=== PATIENT | male | born 1995 | race Caucasian/White ===

== ENCOUNTER 2018-03-02 02:27 | Emergency (ER) | payer BC, SELFPAY ==
[2018-03-02 02:27] VITALS: BP 139/86; PULSE 113; RESP 20; TEMP 39.3; O2SAT 93; BMI 24.4
[2018-03-02] MEDS: 0.9% Normal Saline 1,000 ML 1000 ML IV (04:01)
[2018-03-02] MEDS: Ketorolac 30 MG/ML Syringe IV (04:01)
[2018-03-02 04:04] LABS: Absolute Lymphocyte Count 1.06 X10^3/ul (0.83-4.51); Absolute Neutrophil Count 8.5 X10^3/uL (2.0-7.7); Basophil# 0.01 X10^3/uL; Basophil% 0.1 % (0-1); Eosinophil# 0.04 X10^3/uL; Eosinophils% 0.4 % (0-5); Hematocrit 43.1 % (40-54); Hemoglobin 14.5 g/dl (13.0-16.5); Lymphocyte # 1.06 X10^3/ul (4.0); Lymphocyte % 9.9 % (19-41); Mean Corp Hgb Conc 33.6 g/gl (32-36); Mean Corpuscular Hgb 29.2 pg (27.0-32.0); Mean Corpuscular Volume 86.7 fL (80-94); Mean Platelet Vol. 9.4 fl (6.2-12.0); Monocyte# 1.14 X10^3/uL; Monocyte% 10.6 % (0-10); Neutrophil # 8.47 X10^3/uL (2.7-7.7); Neutrophil % 78.9 % (47-70); Platelet Count 220 K/mm3 (150-450); RBC Distribution Width CV 12.9 % (11.6-14.6); Red Blood Count 4.97 M/mm3 (4.6-6.2); White Blood Count 10.7 K/mm3 (4.4-11.0)
[2018-03-02 04:08] LABS: POSITIVE COUNT NO; POSITIVE DIFFERENTIAL NO; POSITIVE MORPHOLOGY NO
[2018-03-02 04:12] LABS: Anion Gap 8 (5-15); BUN 11 mg/dL (7-18); BUN/Creat Ratio 8.3 RATIO (10-20); Calcium,Total 8.5 mg/dL (8.5-10.1); Chloride 101 mmol/L (98-107); Creatinine, Serum 1.32 mg/dL (0.70-1.30); EST Glomerular Filtration Rate 73 mL/min (>60); Est Glom Filt Rate - Afr Amer 88 mL/min (>60); Estimated Creatinine Clearance 97.98 ml/min; Glucose 92 mg/dL (74-106); Potassium 4.2 mmol/L (3.5-5.1); Sodium Level 136 mmol/L (136-145)
[2018-03-02 04:40] VITALS: BP 146/55; PULSE 89; RESP 18; TEMP 38.4; O2SAT 96
--- NOTE | 2018-03-02 05:12 | ED.VISSUMM ---
- ER Visit Summary Date of Service: 03/02/18 Chief Complaint: Sore throat History of Present Illness: The patient is a 22 M increasing sore throat for 2 days. Here with his father. Subjective fever started yesterday. He did see [facility] walk-in clinic yesterday morning. States rapid strep was obtained which is negative with culture pending. He was not treated with any medications. Pain with swallowing. No past medical history. No allergies. No tobacco history. No cough or chest pains. Physical Examination: General: Alert and oriented ?3, no acute distress HEENT: Normocephalic, atraumatic. Moist mucosa membranes. 2+ symmetric tonsils bilaterally uvula midline. There is exudate on bilateral tonsils. Airway pain. No trismus. Neck: supple, anterior lymphadenopathy tender to palpation Cardiovascular: Regular rate 90 and rhythm, no murmurs Respiratory: Normal breath sounds, symmetric, no distress Abdomen: Soft, nontender, nondistended Extremities: Nontender, no edema, pulses intact ?4 Neuro: no focal neurological deficits. Test Results: White count 10.7. Soft tissue x-ray normal epiglottis, there is prominent tonsillar bed per radiology. Emergency Department Course and Treatment: Patient worsening symptoms since being evaluated yesterday. Tonsils were symmetric. States worsening symptoms with swallowing. X-ray soft tissues of the neck obtained notes a normal epiglottis. Prominent tonsillar bed. Labs are obtained stable, treated Decadron, Toradol, Unasyn. Fluids were given. Reevaluation symptoms were improving. Discussed with patient continue Tylenol Motrin. Discussed the strep culture should be resulted today from his walking clinic. However he will be treated for tonsillitis. Augmentin twice a day for 10 days started. Treatment Plan: [] Disposition: Discharge Impression: Acute tonsillitis This note was generated with [employer] dictation software. It may contain incorrect words, spelling, and punctuation that were not noted in review of the chart prior to signing ED Disposition - Plan for ED Patient: Disposition: Home or Assisted Living Chief Complaint: General Illness Diagnosis: Tonsillitis Instructions: ED Tonsillitis Prescriptions: Amox/Clavulanate Tablet [Augmentin Tablet] 875 mg PO Q12H #20 tablet Referrals: Jonathan Graham MD [Primary Care Provider] - 3-5 Days
[2018-03-02 05:34] VITALS: BP 123/78; PULSE 80; RESP 18; TEMP 38.2; O2SAT 99
== END 2018-03-02 05:35 | disposition home or self-care (01) ==
PROVIDERS: Emergency Provider Emergency Medicine; Family Provider Pediatrics; PCP Pediatrics
DX: J03.90 Acute tonsillitis, unspecified (principal); Z79.899 Other long term (current) drug therapy
CPT/HCPCS: 70360; 80048; 85025; 96365; 96375; 99283; J7030; J0295